=== PATIENT | male | born 1970 | race Two or more races ===

== ENCOUNTER 2018-08-26 20:24 | Emergency (ER) | payer SELFPAY ==
[~2018-08-26] VITALS: Ht 165.1 cm; Wt 81.6 kg
[2018-08-26] MEDS ORDERED: IBUPROFEN600 MG ORAL (21:10)
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
[2018-08-26 21:19] VITALS: BP 147/97
[2018-08-26 21:20] VITALS: BP 147/97
== END 2018-08-26 21:20 | disposition home or self-care (01) ==
LOC: EMR 21:00
DX: S16.1XXA Strain of muscle, fascia and tendon at neck level, initial encounter (principal); S39.012A Strain of muscle, fascia and tendon of lower back, initial encounter; V43.52XA Car driver injured in collision with other type car in traffic accident, initial encounter; Y92.410 Unspecified street and highway as the place of occurrence of the external cause
CPT/HCPCS: 99282